=== PATIENT | female | born 2000 | race Caucasian/White ===

== ENCOUNTER 2022-11-27 16:59 | Emergency (ER) | payer BC, SELFPAY ==
--- NOTE | ~2022-11-27 | US_ITS ---
EXAMINATION: US OB <= 14 weeks fetus DATE: 11/27/2022 20:34 INDICATION: Left lower quadrant abdominal pain. TECHNIQUE: Real-time pelvic ultrasound utilizing both a transvaginal and transabdominal probe was pe rformed. The interpreting radiologist was not present for the study. COMPARISON: None. FINDINGS: The anteverted uterus measures 10.4 x 6.1 x 5.8 cm. There is an intrauterine gestational sac. A yolk sac and pole are identified. The crown rump length measures 1.8 cm, which correlates with an e stimated gestational age of 8 weeks and 2 days. heart motion is identified measuring 165 beats per minute (bpm) by M-mode Doppler. The right ovary is not visualized. The left ovary measures 2.7 x 2.2 x 2.0 cm. A millimeter anechoic likely corpus luteum cyst in the left ovary. There is also vascular flow with arterial waveforms in t he left ovary on color Doppler. There is no free fluid in the pelvis. IMPRESSION: 1. Single living fetus with heart rate of 165 bpm. 2. Gestational age by ultrasound of 8 weeks 2 day(s) +/- 5 day(s) with ultrasound estimated date of delivery ([facility]) of 07/07/2023. Reviewed, dictated and finalized at location A. IMPRESSION: 1. Single living fetus with heart rate of 165 bpm. 2. Gestational age by ultrasound of 8 weeks 2 day(s) +/- 5 day(s) with ultraso und estimated date of delivery ([facility]) of 07/07/2023.
[2022-11-27 17:01] VITALS: BP 116/69; PULSE 86; RESP 18; TEMP 36.7; O2SAT 100
--- NOTE | 2022-11-27 17:15 | ED.NAVMDI ---
HPI - Nausea/Vomiting/Diarrhea General Chief complaint: Nausea/Vomiting/Diarrhea Stated complaint: Possible 8 weeks vomiting Time Seen by Provider: 11/27/22 17:06 Source: patient Mode of arrival: ambulatory Limitations: no limitations History of Present Illness HPI Narrative: Patient is a 22 y/o female who presents to the ED with c/o N/V. Patient reports having persistent nausea and vomiting over the last 3 days. She states she is unable to keep down any food or drink. She was only able to keep down small amount of Sprite today. Patient is currently about 8 weeks . Her last menstrual cycle was 09/28. She typically has regular cycles. She had 2 positive home tests two weeks ago. This makes her G2, P1. Patient plans to follow with Dr. Gomes and Steffany Lizama who saw her for her first . She does report having left-sided abdominal pain intermittently for the last few weeks. She denies any fevers, cough or cold symptoms, diarrhea, constipation, vaginal bleeding or discharge, urinary symptoms. Related Data Allergies Allergy/AdvReac Type Severity Reaction Status Date / Time No Known Allergies Allergy Unverified 09/22/18 13:56 Review of Systems Review of Systems: CONSTITUTIONAL: Denies fever, chills, or sweats. ENT: Denies rhinorrhea, congestion, sore throat. CARDIOVASCULAR: Denies chest pain. RESPIRATORY: Denies cough or dyspnea. GASTROINTESTINAL: See HPI. GENITOURINARY: Denies dysuria or hematuria. MUSCULOSKELETAL: Denies back pain. NEUROLOGIC: Denies headache, numbness, or weakness. All systems reviewed & are unremarkable except as noted in HPI and below PMFSH Past Medical History Medical History (Updated 11/27/22 @ 21:13 by Radha Coelho PA-C) No pertinent past medical history Surgical History Surgical History (Updated 11/27/22 @ 17:19 by Radha Coelho PA-C) No pertinent past surgical history Social History Social History (Updated 11/27/22 @ 17:19 by Radha Coelho PA-C) Smoking status: Never smoker Exam Narrative: GENERAL: Well appearing, thin, very small frame, non-toxic, in no acute distress. HEAD: Normocephalic, atraumatic. NECK: Supple. No adenopathy, no masses. RESPIRATORY: Airway patent, respirations nonlabored. Clear to auscultation bilaterally, no rales, rhonchi, wheezing. CARDIOVASCULAR: Regular rate and rhythm without murmurs, rubs, or gallops. Radial pulses 2+ and equal bilaterally. ABDOMINAL: Soft, TTP in epigastric region, LLQ, no rebound tenderness. Nondistended, no hepatosplenomegaly. Normoactive BS. MUSCULOSKELETAL: Moves all extremities. Strength/ROM intact without gross deformities. SKIN: Warm, dry, normal color. No rashes. NEURO: A&O X3. Speech clear. Cranial nerves II-XII grossly intact. Steady gait. No ataxic movements. PSYCHIATRIC: Appropriate mood and affect. Normal interaction. Course Vital Signs Vital signs: Vital Signs Temperature 98.1 F 11/27/22 17:01 Pulse Rate 86 11/27/22 17:01 Respiratory Rate 18 11/27/22 17:01 Blood Pressure 116/69 11/27/22 17:01 Pulse Oximetry 100 11/27/22 17:01 Oxygen Delivery Room Air 11/27/22 17:01 Temperature 98.9 F 11/27/22 21:05 Pulse Rate 90 11/27/22 21:05 Respiratory Rate 17 11/27/22 21:05 Blood Pressure 99/62 L 11/27/22 21:05 Pulse Oximetry 99 11/27/22 21:05 Oxygen Delivery Room Air 11/27/22 17:01 MDM - Nausea/Vomiting/Diarrhea MDM Narrative Medical decision making narrative: Patient presented to ED approx 8 weeks gestation, , for 3 days Hx of N/V, unable to keep down any food/drink, intermittent LLQ pain. VSS upon arrival. CBC w/o leukocytosis or anemia. CMP unremarkable, no significant electrolyte abnormalities or signs of dehydration. UA with 1+ ketones, positive nitrate, 1+ leuks, 21-50 WBC, 4+ urine bacteria. Consistent with infection. Sent for culture. Will treat. Given dose of Ceftriaxone in the ED. Keflex sent to [facility]
[2022-11-27 17:24] LABS: Basophils Absolute Auto 0.1 K/mm3 (0.0-0.1); Basophils Percent Auto 0.6 % (0.2-1.2); Eosinophils Percent Auto 0.3 % (0-4.4); Hematocrit 41.2 % (37.0-47.0); Hemoglobin 14.3 g/dL (12.0-15.0); Immature Granulocyte Absolute 0.03 K/mm3 (0.00-0.031); Immature Granulocyte Percent A 0.3 % (0-0.5); Lymphocytes Percent Auto 20.8 % (18.3-44.2); Mean Corpuscular HGB Conc 34.7 g/dl (32-36); Mean Corpuscular Hemoglobin 30.6 pg (26-34); Mean Corpuscular Volume 88.2 fl (80-100); Mean Platelet Volume 10.9 fl (7.4-10.4); Monocytes Absolute Auto 0.6 K/mm3 (0.1-0.6); Monocytes Percent Auto 6.4 % (2.6-8.5); Neutrophils Absolute Auto 6.2 K/mm3 (1.3-6.7); Neutrophils Percent Auto 71.6 % (45.5-73.1); Platelet Count Result 263 k/mm3 (150-375); Red Blood Count 4.67 M/mm3 (4.2-5.4); Red Cell Distribution Width 11.7 % (11.5-14.5); White Blood Count 8.6 K/mm3 (4.5-10.0)
[2022-11-27 17:43] LABS: Alanine Aminotransferase 14 U/L (6-35); Albumin Level 4.8 g/dL (3.5-5.1); Alkaline Phosphatase 51 U/L (38-126); Anion Gap 10 mmol/L (8-16); Aspartate Amino Transferase 20 U/L (14-36); Bilirubin,Total 1.1 mg/dL (0.2-1.3); Blood Urea Nitrogen 10 mg/dL (7-17); Carbon Dioxide 26 mmol/L (22-30); Chloride 99 mmol/L (98-107); Estimated Glomerular Filt Rate > 60; Glucose 92 mg/dL (65-110); Sodium 135 mmol/L (137-145)
[2022-11-27] MEDS: METOCLOPRAMIDE HCL INJ 10 MG/2 ML VIAL IV PUSH (18:29)
[2022-11-27] MEDS: PANTOPRAZOLE SODIUM IV 40 MG VIAL IV PUSH (18:29)
[2022-11-27] MEDS: SODIUM CHLORIDE 0.9% IV 1,000 ML 999 ML IV CONT (18:29)
[2022-11-27 18:39] LABS: Appearance Urine Turbid (Clear); Bacteria Urine 4+ /hpf; Bilirubin Urine Negative (Negative); Color Urine Dark Yellow (Yellow); Glucose Urine UA Negative (Negative); Hyaline Casts Urine Present /lpf; Ketones Urine 1+ mg/dL (Negative); Leukocyte Esterase Ur 1+ LEU/UL (Negative); Nitrate Urine Positive (Negative); Non Pathogenic Casts 0-2; Protein Urine Trace mg/dL (Negative); RBC Urine 0-2 /hpf (0-2); Specific Grav Ur 1.028 (1.001-1.035); Squamous Epithelial Cell Urine Many /hpf (Few); WBC Urine 21-50 /hpf; pH Urine 5.5 (5.0-9.0)
[2022-11-27 18:41] LABS: Add Urine Microscopic? YES
--- NOTE | 2022-11-27 19:25 | PC.NURSE ---
Report received from DULCE MARIA Steen. Assumed care of patient at this time.
--- NOTE | 2022-11-27 20:16 | PC.NURSE ---
US here to take patient.
[2022-11-27 21:05] VITALS: BP 99/62; PULSE 90; RESP 17; TEMP 37.2; O2SAT 99
== END 2022-11-27 21:42 | disposition home or self-care (01) ==
PROVIDERS: Emergency Provider Physician Assistant
DX: O21.9 Vomiting of pregnancy, unspecified (principal); O23.41 Unspecified infection of urinary tract in pregnancy, first trimester; N39.0 Urinary tract infection, site not specified; Z3A.08 8 weeks gestation of pregnancy
CPT/HCPCS: 36415; 76801; 80053; 81001; 81025; 84702; 85025; 87077; 87086; 87088; 87186; 96361; 96365; 96375; 99284; C9113; J0696; J2765; J7030

== ENCOUNTER 2023-02-06 19:39 | Emergency (ER) | payer BC, SELFPAY ==
[2023-02-06 19:49] VITALS: BP 105/54; PULSE 72; RESP 12; TEMP 37.2; O2SAT 100
--- NOTE | 2023-02-06 20:12 | ED.DENTAL ---
HPI - Dental/Oral General Chief complaint: Dental/Oral Stated complaint: tooth problem Time Seen by Provider: 02/06/23 20:04 Source: patient and RN notes reviewed Mode of arrival: ambulatory Limitations: no limitations History of Present Illness HPI Narrative: Patient presents today complaining of right jaw all pain x1 week. Pain increases when she opens and closes her mouth and when she chews. History of TMJ. Currently rates her pain 7/10 and has tried no medication for symptoms prior to arrival. States she went to the dentist 4 days ago, but could not be seen due to insurance issues. States her last treatment for TMJ was 4 years ago when she had braces. Related Data Allergies Allergy/AdvReac Type Severity Reaction Status Date / Time No Known Allergies Allergy Verified 02/06/23 19:56 Review of Systems Review of Systems: CONSTITUTIONAL: Denies body aches, fever, chills, or sweats. EYES: Denies visual changes, redness, or discharge. ENT: Denies rhinorrhea, congestion, sore throat, or otalgia.+ right jaw pain CARDIOVASCULAR: Denies chest pain, palpitations, or edema. RESPIRATORY: Denies cough or dyspnea. GASTROINTESTINAL: Denies abdominal pain, nausea, vomiting, or diarrhea. GENITOURINARY: Denies dysuria or hematuria. SKIN: Denies rash, itching, or wounds. MUSCULOSKELETAL: Denies back pain, joint pain, or myalgia. NEUROLOGIC: Denies headache, numbness, tingling, or weakness. PSYCH: Denies depression or anxiety. PMFSH Past Medical History Medical History No pertinent past medical history Surgical History Surgical History No pertinent past surgical history Social History Social History Smoking status: Never smoker Comments At time of signature, I have reviewed and agree with nursing past medical, surgical, social and family history unless otherwise noted. Please see nursing chart for further information. There is no relevant family history pertinent to the presenting complaint Exam Narrative: GENERAL: Well-appearing, well-nourished, and in no acute distress. HEAD: Normocephalic, atraumatic. EYES: EOMI. No redness or drainage. Conjunctivae normal. ENT: Mucous membranes pink and moist. Tenderness to the right TM joint. Popping noted with opening and closing of the mouth. No trismus. NECK: Normal AROM. CHEST: No respiratory distress. EXTREMITIES: Normal range of motion. No edema. SKIN: Warm, dry, no rash. Capillary refill normal. Normal skin turgor. NEURO: No focal deficits. Alert and oriented x3. Gait steady. PSYCH: Normal affect. No signs of depression or anxiety. Course Course Level of Care: Express Care Visit Vital Signs Vital signs: Vital Signs Temperature 99 F 02/06/23 19:49 Pulse Rate 72 02/06/23 19:49 Respiratory Rate 12 02/06/23 19:49 Blood Pressure 105/54 L 02/06/23 19:49 Pulse Oximetry 100 02/06/23 19:49 Oxygen Delivery Room Air 02/06/23 19:49 Temperature 99 F 02/06/23 19:49 Pulse Rate 72 02/06/23 19:49 Respiratory Rate 12 02/06/23 19:49 Blood Pressure 105/54 L 02/06/23 19:49 Pulse Oximetry 100 02/06/23 19:49 Oxygen Delivery Room Air 02/06/23 19:49 Reviewed MDM - Dental/Oral MDM Narrative Medical decision making narrative: Symptoms consistent with temporomandibular joint pain. Will prescribe naproxen and Flexeril for symptoms. Instructed patient to find a new dentist within her insurance network for follow-up. Differential Diagnosis Differential diagnosis: Likely dental caries, toothache and other (TMJ pain) Critical Care Time Critical Care Time Critical Care Time: No Discharge Plan Discharge Clinical Impression: Temporomandibular joint (TMJ) pain Qualifiers: Laterality: right Qualified Code(s): M26.621 - Arthralgia of right temporoman
== END 2023-02-06 20:21 | disposition home or self-care (01) ==
PROVIDERS: Emergency Provider Nurse Practitioner
DX: M26.621 Arthralgia of right temporomandibular joint (principal)
CPT/HCPCS: 99213; G0463

== ENCOUNTER 2023-05-18 20:34 | Observation (INO) | payer BC, SELFPAY ==
--- NOTE | 2023-05-18 20:34 | OBADM ---
This patient, Michelle Lopes, admitted to the OB room [facility] for observation. Patient/family oriented to hospital policies and general routines including ID bracelet, bed and alarms, visiting hours, pain management, procedures, bathroom and other care routines, personal items, smoking policy, room service/diet, and visiting hours. Patient/Family are encouraged to report perceived risks to care and to ask questions if they do not understand what they are told or what they should do.
[2023-05-18 21:01] VITALS: TEMP 36.7
[2023-05-18 21:13] VITALS: BP 116/63; PULSE 102
[2023-05-18 21:29] LABS: Appearance Urine Turbid (Clear); Bacteria Urine 4+ /hpf; Bilirubin Urine Negative (Negative); Blood Urine Negative (Negative); Color Urine Yellow (Yellow); Glucose Urine UA Negative (Negative); Ketones Urine Negative (Negative); Leukocyte Esterase Ur 3+ LEU/UL (NEGATIVE); Need Manual Microscopic Reviewed; Nitrate Urine Negative (Negative); Non Pathogenic Casts 0-2; Protein Urine Negative (Negative); RBC Urine 0-2 /hpf (0-2); Specific Grav Ur 1.012 (1.001-1.035); Squamous Epithelial Cell Urine Many /hpf (Few); pH Urine 7.5 (5.0-9.0)
[2023-05-18 21:30] LABS: Add Urine Microscopic? YES
--- NOTE | 2023-05-18 21:35 | PC.NURSE ---
Called Jens Chester CNM with pt admission. Informed of contractions noted q 1-2 min. Pt talking through contractions. Pt received care x1 visit in early April. Tracing reassuring. Orders received.
[2023-05-18] MEDS: TERBUTALINE SULFATE 1 MG/ML VIAL 0.25 MG SUB-Q (21:53)
[2023-05-18 22:13] LABS: Basophils Percent Auto 0.3 % (0.2-1.2); Eosinophils Absolute Auto 0.2 K/mm3 (0-0.3); Hematocrit 28.3 % (37.0-47.0); Immature Granulocyte Absolute 0.07 K/mm3 (0.00-0.031); Immature Granulocyte Percent A 0.7 % (0-0.5); Lymphocytes Absolute Auto 2.13 K/mm3 (0.9-3.2); Lymphocytes Percent Auto 22.5 % (18.3-44.2); Mean Corpuscular HGB Conc 31.8 g/dl (32-36); Mean Corpuscular Hemoglobin 28.3 pg (26-34); Mean Platelet Volume 10.1 fl (7.4-10.4); Monocytes Absolute Auto 0.5 K/mm3 (0.1-0.6); Monocytes Percent Auto 5.6 % (2.6-8.5); Neutrophils Absolute Auto 6.5 K/mm3 (1.3-6.7); Neutrophils Percent Auto 68.9 % (45.5-73.1); Platelet Count Result 311 k/mm3 (150-375); Red Blood Count 3.18 M/mm3 (4.2-5.4); White Blood Count 9.5 K/mm3 (4.5-10.0)
[2023-05-18 22:22] LABS: Hemoglobin A1C 4.8 % (<5.7)
--- NOTE | 2023-05-18 22:55 | PC.NURSE ---
Called Jens Chester CNM with pt update. Pt no longer feeling contractions. An occasional 40 sec contraction noted on tracing. SVE /-2 soft. May D/C home to follow up with her OB doctor. Increase iron to BID. Return if contractions return.
[2023-05-18 22:59] LABS: Hepatitis B Surface Antigen Negative (Negative); Rubella IgG Antibody 40.2 IU/ML
[2023-05-18 23:06] LABS: HIV 1/2 Ab P24 Ag Result Negative (Negative)
[2023-05-19 00:33] LABS: Amphetamine Screen Urine Negative (Negative); Barbiturate Screen Urine Negative (Negative); Benzodiazepines Screen Urine Negative (Negative); Cannabinoid Screen Urine Negative (Negative); Cocaine Screen Urine Negative (Negative); Methadone Screen Urine Negative (Negative); Opiate Screen Urine Negative (Negative); Phencyclidine Screen Urine Negative (Negative)
[2023-05-19 16:03] LABS: Rapid Plasma Reagin Non-Reactive (NonReactive)
--- NOTE | 2023-05-23 17:55 | P.PNOB_ITS ---
OB - Triage/Final Diagnosis Visit Information Date of evaluation: 05/18/23 Reason for evaluation: threatened labor Comments/Additional reasons for admission: I have assessed the risk for this patient, Michelle Lopes, and determined that she would benefit from observation care. Evaluation Laboratory results: Laboratory Tests 05/18/23 05/18/23 21:04 21:56 WBC 9.5 RBC 3.18 L Hgb 9.0 L D Hct 28.3 L MCV 89.0 MCH 28.3 MCHC 31.8 L RDW 12.0 Plt Count 311 MPV 10.1 Immature Gran % (Auto) 0.7 H Neut % (Auto) 68.9 Lymph % (Auto) 22.5 [place] % (Auto) 5.6 Eos % (Auto) 2.0 Baso % (Auto) 0.3 Lymph # (Auto) 2.13 [place] # (Auto) 0.5 Eos # (Auto) 0.2 Baso # (Auto) 0.0 Abs Immat Gran (auto) 0.07 H Absolute Neuts (auto) 6.5 Absolute Nucleated RBC 0.0 Nucleated RBC % 0.0 Hemoglobin A1c 4.8 Urine Color Yellow Urine Appearance Turbid H Urine pH 7.5 Ur Specific [place] 1.012 Urine Protein Negative Urine Glucose (UA) Negative Urine Ketones Negative Ur Blood (Man) Negative Urine Nitrate Negative Urine Bilirubin Negative Urine Urobilinogen 1.0 Ur Leukocyte Esterase 3+ H Add Ur Microanalysis Reviewed Urine RBC 0-2 Urine WBC 11-20 H Ur Squamous Epith Cells Many H Urine Bacteria 4+ H Urine Casts 0-2 Urine Opiates Screen Negative Urine Methadone Screen Negative Ur Barbiturates Screen Negative Ur Phencyclidine Scrn Negative Ur Amphetamine Screen Negative U Benzodiazepines Scrn Negative Urine Cocaine Screen Negative U Cannabinoids Screen Negative RPR Non-reactive Hep Bs Antigen Negative HIV 1&2 Ab/P24 Ag 4thGn Negative Rubella IgG Antibody 40.2 Blood Type B Positive Antibody Screen Negative
== END 2023-05-18 23:20 | disposition home or self-care (01) ==
PROVIDERS: Admitting Provider Obstetrics & Gynecology Gynecology; Referring Provider Advanced Practice Midwife; Visit Provider Obstetrics & Gynecology Gynecology
DX: O47.03 False labor before 37 completed weeks of gestation, third trimester (principal); Z3A.33 33 weeks gestation of pregnancy; Z11.4 Encounter for screening for human immunodeficiency virus [HIV]
CPT/HCPCS: 36415; 80307; 81001; 83036; 85025; 86592; 86703; 86762; 86850; 86900; 86901; 87086; 87088; 87340; 96372; G0378; G0379; G0432; J3105

== ENCOUNTER 2024-10-26 11:42 | Emergency (ER) | payer BC, SELFPAY ==
--- NOTE | 2024-10-26 11:45 | ED_ITS ---
HPI - Ear Problem General Chief complaint: Ear Stated complaint: Ear Time Seen by Provider: 10/26/24 11:44 Source: patient Mode of arrival: ambulatory Limitations: no limitations History of Present Illness HPI Narrative: Michelle is a 24-year-old female patient presenting to the clinic today with complaints right ear pain. She reports symptoms have been going on for 2 weeks. Right ear has started draining some yellowish discharge. No known fever or chills. Related Data Allergies Allergy/AdvReac Type Severity Reaction Status Date / Time No Known Allergies Allergy Verified 10/26/24 11:59 Review of Systems Review of Systems: Pertinent positives per HPI. Patient denies any fever, chills, rash, headache, visual changes, dizziness, cough, runny nose, sore throat, shortness of breath, chest pain, palpitations, nausea, vomiting, diarrhea, constipation, abdominal pain, or any urinary issues. PMFSH Past Medical History Medical History No pertinent past medical history Surgical History Surgical History No pertinent past surgical history Social History Social History Smoking status: Never smoker Comments At the time of my signature, I reviewed and agree with the nursing past medical, surgical, social, and family history. There is no relevant family history pertinent to the patient complaint. Exam Narrative: General: Well-developed, well nourished, in no apparent distress Head: Normocephalic, atraumatic Eyes: Pupils equally round and reactive to light bilaterally, EOM intact, sclera and conjunctive clear, no discharge, lids normal Ears: TMs intact and clear, left ear canals clear, no drainage, right ear canal swollen, red, with yellow mucopurulent discharge, tenderness to palpation over the right tragus and pulling of pinna, grossly hearing normal. Nose: Nares patent, no discharge, no inflammation, no sinus tenderness. Mouth: Oral pharynx without lesions or masses, good dentition, MMM. Neck: Supple, trachea midline, no enlargement of anterior or posterior cervical nodes, no thyroid masses or goiter palpable. Cardio: Regular rate and rhythm, s1 and s2 normal, no murmur appreciated. Resp: Clear to auscultation bilaterally, no rhonchi, rales, wheezing or rubs Course Course Emergency Course: Portions of this record may have been created with voice recognition software. Level of Care: Express Care Visit Vital Signs Vital signs: Vital signs reviewed Medical Decision Making MDM Narrative Medical decision making narrative: At the time of visit patient is resting comfortably on the exam table. Patient appears to be nontoxic. Plan: I suspect patient has right otitis externa. Prescription for ofloxacin ear drops was sent to the pharmacy. Supportive measures were discussed with the patient and they voiced understanding discharge instructions and agrees to treatment plan. Return precautions reviewed Differential Diagnosis Differential Diagnosis: Otitis media, otitis externa, eustachian tube dysfunction, cerumen impaction, upper respiratory infection, serous otitis Discharge Plan Discharge Clinical Impression: Otitis externa Qualifiers: Otitis externa type: diffuse Chronicity: acute Laterality: right Qualified Code(s): H60.311 - Diffuse otitis externa, right ear Patient Disposition: Home, Self-Care Condition: Stable Instructions: Antibiotic Form, Swimmer's Ear (ED), Earache (ED) Additional Instructions: Take any prescribed medications only as directed-ofloxacin ear drops Tylenol/motrin as needed for pain May use heating pad to alleviate pain If you get recurrent ear infections it may be warranted to follow up with ENT. Follow up with your PCP in 3-5 days if symptoms persist. Patient Language: [place] Prescriptions: New ofloxacin 0.3 % drops 5 drp otic (ear) BID 7 Days Qty: 5 0RF Follow-up/Referrals: UNKNOWN,DOCTOR [Primary Care Provider] - Time of Disposition: 12:00 Quality NIHSS Nursing Documentation ED NIHSS nursing documentation: reviewed/agree
[2024-10-26 11:49] VITALS: BP 103/67; PULSE 95; RESP 20; TEMP 37.5; O2SAT 100
== END 2024-10-26 12:06 | disposition home or self-care (01) ==
PROVIDERS: Emergency Provider Nurse Practitioner Family
DX: H60.311 Diffuse otitis externa, right ear (principal)
CPT/HCPCS: 99213; G0463